=== PATIENT | male | born 2005 | race African-American/Black ===

== ENCOUNTER 2025-10-18 11:18 | Outpatient (AMB) | payer OTHER, MEDICAID, SELFPAY ==
--- NOTE | 2025-10-18 11:18 | A.OFFPC_ITS ---
Vital Signs 10/18/25 11:20 Height 5 ft 10 in Weight 210 lb 4 oz BMI 30.2 BP 120/80 Blood Pressure Location Lt brachial Position Sitting Respiration 16 Pulse 77 Pulse Source Pulse Oximeter Temp 96.8 F Temp Source Temporal Artery Scan Pulse Oximetry (%) 96 Oxygen Delivery Method Room Air Intake Visit Reasons: Re-est care/asthma f/u - see comments Leveler Required: No Accompanied by: Self / Same As Patient Allergies peanut Allergy (Intermediate, Verified 10/18/25 11:22) Facial Swelling Medication List - Last Reconciled 10/18/25 by Rozina Liriano MD albuterol sulfate 90 mcg/actuation (Ventolin HFA) 2 puffs inhalation Q6H PRN Tobacco use date assessed: 10/18/25 Dental Screening Dental Screen Date: 10/18/25 Did you have a dental visit in the last 12 months?: Yes Did you have a dental problem in the last 6 months where you did not have access to dental care?: No Was dental information given to patient?: Patient has dentist HPI HPI Comments History of Present Illness Details The patient is a 20 year old male presenting for physical and to establish care. Last saw watch technician Dr. Chavez many years ago. Asthma: The patient has a history of asthma and reports recent minor wheezing episodes. The patient has a past history of using a Flovent inhaler during sports activities. Pseudofolliculitis Barbae: The patient has had razor bumps for a couple of months, which began after a visit to the [facility]. The patient attempted to treat the condition by scrubbing the area harshly and applying hydrocortisone cream, which was ineffective. Health Maintenance: The patient does not smoke cigarettes but vapes sometimes and drinks alcohol occasionally. The patient recently received a flu shot but was due for a tetanus vaccination. Medical History: - Asthma - Allergies to pollen and dust Surgical History: - Right knee ACL surgery secondary to a football injury. Social History: - Substance Use: The patient denies smok ing cigarettes but reports vaping sometimes. The patient reports occasional alcohol use. - Employment: The patient works at [employer]. - Nutritional Intake: The patient does n ot eat in the morning and reports a poor appetite on some days. - Sleep: The patient reports not sleepin g much. FORMERLY [facility], 1928–1983 Medical History (Updated 10/18/25 @ 11:43 by Rozina Liriano MD) Routine medical exam Unspecified asthma Surgical History (Updated 10/18/25 @ 11:36 by Rozina Liriano MD) H/O right knee surgery Social History Housing: House Patient Tobacco Use Status: Never used Tobacco e-Cigarette/Vaping Use: Currently Using service: No Current occupational status: employed Current occupation: [employer] Questionnaire PHQ-9 Over the last 2 weeks, how often have you been bothered by any of the following problems? 1. Little interest or pleasure in doing things: not at all 2. Feeling down, depressed, or hopeless: not at all 3. Trouble falling or staying asleep, or sleeping too much: several days 4. Feeling tired or having little energy: several days 5. Poor appetite or overeating: several days 6. Feeling bad about yourself - or that you are a failure or have let yourself or your family down: not at all 7. Trouble concentrating on things, such as reading the newspaper or watching television: not at all 8. Moving or speaking so slowly that other people could have noticed. Or the opposite - being so fidgety or restless that you have been moving around a lot more than usual: not at all 9. Thoughts that you would be better off or of hurting yourself in some way: not at all Total score: 3 Depression Screening Interpretation: Negative Depression Screening Done: Yes Source: Developed by Drs. Kris Ruelas, Roxanna Kang, Je Brower and colleagues, with an educational guillermina from [employer]. AUDIT C Alcohol Use Questionnaire (AUDIT-C) 1. How often do you have a drink containing alcohol?: 2-4 times a month 2. How many drinks containing alcohol do you have on a typical day when you are drinking?: 1 or 2 3. How often do you have six or more drinks on one occasion?: Never Total Score: 2 Review of Systems Narrative Review of Systems - CONSTITUTIONAL: Reports feeling a little tired some days and having a poor appetite at times. Denies feeling down or depressed. - RESPIRATORY: Reports a little bit of wheezing recently. - EYES: Denies blurry vision. - SKIN: Reports razor bumps on the face/neck area for a couple of months. - PSYCHIATRIC: Denies feeling depressed, having a poor self-image, trouble concentrating, restlessness, or thoughts of self-harm. - ALLERGIC/IMMUNOLOGIC: per hpi Physical exam (Primary Care) Vital Signs: Last Vital Signs Temp 96.8 F 10/18/25 11:20 Pulse 77 10/18/25 11:20 Resp 16 10/18/25 11:20 BP 120/80 10/18/25 11:20 Pulse Ox 96 10/18/25 11:20 Oxygen Delivery Method Room Air 10/18/25 11:20 BMI result Body Mass Index 30.2 Tobacco/Smoking Status: Tobacco use Status Tobacco use date assessed 10/18/25 10/18/25 11:26 Patient Tobacco Use Status Never used Tobacco 10/18/25 11:26 e-Cigarette/Vaping Use Currently Using 10/18/25 11:26 PHQ-9: PHQ-9 Score PHQ-9: Total score 3 10/19/25 11:29 Depression Screening Interpretation: Negative Narrative Physical Exam -Gen: NAD - HEENT: Left ear contains a small amount of non-obstructing cerumen. Right ear is clear. Oropharynx is clear. - Neck: Supple, with no evidence of lymphadenopathy upon palpation. - Lungs: Auscultation reveals coarse breath sounds without wheezing. - Cardiovascular: Normal heart sounds on auscultation. - Abdomen: Normal bowel sounds present. Soft, non-tender, and non-distended. - Extremities: no edema bilaterally - Derm: small raised papules under chin Immunizations Boostrix Tdap 2.5 Lf unit-8 mcg-5 Lf/0.5 mL intramuscular syringe Performing Provider: Rozina Liriano MD [place] [facility] [place] [facility] [place] Administered by: Sabi Woodall CMA on 10/18/25 11:40 Dose Route Admin Location Dispensed Lot Number Expiration Date [facility] Electric Mule Driver 0.5 mL IM Left Deltoid 0.5 mL [id number] 12/18/26 [id number] [employer] Total Dispensed Waste 0.5 mL 0 % VIS Given Date VIS Provided VIS Publication Date 10/18/25 Single Vaccine 21 Eligibility Eligibility Date Funding Source Not [facility] Eligible 10/18/25 Private Coding Level of Care Code New Pt Prev Care 18-39yr([id number] Complex visit Add On G2211 Diagnoses Routine medical exam Z00.00 Assessment & Plan Assessment & Plan (1) Routine medical exam: Code(s): Z00.00 - Encounter for general adult medical examination without abnormal findings Category: Medical Plan Assessment and Plan 1. Asthma - The patient reports some recent wheezing. - The physical exam was notable for coarse lung sounds without wheezing. - An albuterol inhaler will be prescribed for use as needed, two puffs every 4-6 hours. - The patient was advised to follow up if inhaler use increases, as a stronger inhaler may be necessary. 2. Pseudofolliculitis barbae - The patient has had persistent razor bumps for several months, likely from a contaminated razor, with failed self-treatment using hydrocortisone. - The plan includes a 7-day course of oral doxycycline taken twice daily with food, and a topical antibiotic ointment applied three times daily. - The patient was instructed to stop using hydrocortisone and to wash the area gently. 3. Health Maintenance - Baseline blood work, including liver, kidney, and cholesterol panels, is ordered. - The patient received a Tdap vaccine in the office. - The patient was counseled on the importance of annual exams and avoiding vaping, especially with asthma history. - A recommendation was made to reduce screen time and consider a baseline eye exam. - The patient will follow-up in one year. Plan - Prescribed albuterol HFA inhaler, 2 puffs every 4-6 hours as needed for wheezing. - Prescribed oral doxycycline for 7 days, to be taken twice daily with food for pseudofolliculitis barbae. - Prescribed a topical antibiotic ointment to be applied to the affected skin three times per day. - Administered Tdap vaccine in office. - Ordered baseline laboratory studies including liver function tests, kidney function tests, and a cholesterol panel. - Counseled patient to discontinue use of hydrocortisone cream on the face. - Advised patient to avoid vaping due to asthma. - Recommended a baseline examination with an eye doctor and to minimize screen time. Discussion Notes I discussed the patient's asthma symptoms and prescribed an albuterol inhaler for as-needed use, advising the patient to contact me if symptoms worsen or use increases. Patient Instructions - Use your new albuterol inhaler as needed for wheezing or shortness of breath. The dose is two puffs every 4 to 6 hours. - For the bumps on your skin, take one doxycycline pill in the morning and one in the evening with food for 7 days. - Apply the antibiotic cream I prescribed to the bumps three times a day. - Gently wash the affected skin with soap and water daily. Do not scrub it harshly, as this can cause more irritation. - You received a Tdap (tetanus) shot today. Your arm might feel sore for a day or two. You can take Tylenol or use an ice pack for relief. - You will have blood drawn today to check on your overall health, including your liver, kidneys, and cholesterol. - Avoid vaping, as it can harm your lungs, especially because you have asthma. Orders: Orders Comprehensive Met. Panel 10/18/25 Z00.00 - Encounter for general adult medical examination without abnormal findings TDaP Immunization 10/18/25 Z23 - Encounter for immunization Complete Blood Count Auto Diff 10/18/25 Z00.00 - Encounter for general adult medical examination without abnormal findings Lipid Panel 10/18/25 Z00.00 - Encounter for general adult medical examination without abnormal findings Medications: New mupirocin 2% (Centany) 1 appl topical TID 22 grams 0RF doxycycline monohydrate 100 mg PO BID 14 caps 0RF 7 days albuterol sulfate 90 mcg/actuation (Ventolin HFA) 2 puffs inhalation Q6H PRN 8.5 grams 11RF shortness of breath or wheezing
[2025-10-18 11:20] VITALS: BP 120/80; PULSE 77; RESP 16; TEMP 36; O2SAT 96; BMI 30.2
--- OUTSIDE RECORDS SUMMARY | 2025-10-18 15:00 | XMS_ITS | Clinical Summary ---
Author Organization [facility] Address [address] [place] [address] Phone Care Team Providers Care Tin Pourer Name Role Phone Unavailable Primary Care Provider Unavailabl e Allergies Active Allergy Reactions Criticality Noted Date Comments Peanuts (Food) 11/26/2021 Medications EPINEPHrine (EpiPen 2-Jan) 0.3 MG/0.3ML injection syringeIndicatio ns:Food allergy Inject into muscle immediately for signs of anaphylaxis AND call 911. Repeat if symptoms worsen/recur or if uncertain medicine was given 4 each 1 2 Active albuterol HFA 108 (90 Base) MCG/ACT inhalerIndicatio ns:Mild intermittent asthma without complication INHALE 2 PUFFS EVERY 4 HOURS NEEDED FOR WHEEZING OR SHORTNESS OF BREATH 6.7 g 3 Active Pseudoephedrine- APAP-DM (DAYQUIL PO) Take by mouth. Activ e budesonide-formo terol 80-4.5 MCG/ACT inhalerIndicatio ns:Mild persistent asthma without complication INHALE 2 PUFFS TWICE A DAY RINSE MOUTH WITH WATER AFTER USE, DO NOT SWALLOW 30.6 Units 2 5 Active Active Problems Problem Noted Date Diagnosed Date Need for SBE (subacute bacterial endocarditis) p rophylaxis 10/20/2023 Overview (10/20/2023): Due to hx of bacterial endocarditis Assessment & Plan (10/27/2023 12:03 PM EST): <Kaylynn Lawson MD 10/27/2023 12:02 PM> Addendum added He does require SBE prophylaxis prior to indicated procedures. 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 Needs SBE prophylaxis prior to indicated procedures (dental/oral and respiratory tract procedures) Assessment & Plan (10/08/2023 9:38 AM EST): He was in PICU in 2018 before he was out patient with sepsis and ?bacterial endocarditis. Will need to obtain Cardiology and ID notes and determine if he needs SBE prophylaxis for wisdom teeth extractions. Influenza vaccine refused 10/08/2023 Assessment & Plan (10/08/2023 9:41 AM EST): He refused flu and COVID vaccines today. Mild persistent asthma without complication 01/2022 Assessment & Plan (09/03/2024 11:40 AM EDT): Discussed that if he is routinely needing albuterol with exercise, likely that his asthma is not well-controlled. He agrees to try a daily maintenance dose, and we discussed that he can use this same inhaler as a rescue if he needs it Assessment & Plan (08/28/2023 4:12 PM EDT): Almost never needs his inhaler Assessment & Plan (07/31/2022 5:50 PM EDT): Using Flovent before football, recommended using albuterol instead. Seasonal allergic rhinitis 11/26/2021 Immunizations Immunization Administration Dates Next Due DTaP 03/22/2008, 5,2004,06/07,2004 HPV Vaccine 9 Valent 07/26/2021,10/01/2019,07/16 Hep A, ped/adol 07/25/2020,07/16/2019 Hep B, ped/adol 12/12/2005,2004,2004 HiB 07/04/2005, 4,2004,05/11 IPV 03/22/2008, 5,2004,04/10 Influenza, injectable, quadr ivalent, preservative free 10/07/2013,11/03/2012,10/10/2010,08/23 Influenza, injectable, triva lent, preservative free 09/03/2024 Influenza, injectable,christiano valent, preservative free, pediatric 09/17/2005,2004 MMR 03/22/2008,07/04/2005 Meningococcal B Bexsero 07/26/2021,07/25/2020 Meningococcal Conj (Menactra) MCV4P 07/25/2020,0 03/31/2015 Pneumococcal Conjugate 13-Valent 005,2004,2004,04/10 Tdap 03/31/2015 Varicella 03/22/2008,03/04/2005 Family History Medical History Relation Name Comments Diabetes Maternal Grandfather Asthma Sister 1 Shanika king Relation Name Status Comments Brother David Ceja Alive Father Alive Maternal Grandfather Alive Maternal Grandmother Alive Mother Alive Paternal Grandfather Paternal Grandmother Sister 1 Shanika king Alive Sister 2 Cardion Alive Sister 3 Rafael Savage Alive Social History Tobacco Use Types Packs/Day Years Used Date Smoking Tobacco: Never Tobacco Cessation:Counseling Given: Not Answered Alcohol Use Standard Drinks/Week Comments Never 0 (1 standard drink = 0.6 oz pur e alcohol) Hunger/Food Answer Date Recorded In the last 12 months, did y ou or your family ever eat less than you felt you should because there wasn't enough money for food? No 09/03/2024 Stable Housing Answer Date Recorded Are you worried that in the next 2 months you may not have stable housing? No 09/03/2024 Transportation Concerns Answer Date Rec orded In the last 12 months, have you or your family ever had to go without healthcare because you didn't have a way to get there? No 09/03/2024 Hazards in Home Answer Date Recorded Think about the place you li ve. Do you have problems with any of the following? Pests (mice or roaches), mold, no/not working smoke detectors, water leaks, no window guards. No 2023 Financing Utilities Answer Date Recorde d In the last 12 months, has t he electric, gas, oil, or water company threatened to shut off your services in your home? No 09/03/2024 Safety at Home Answer Date Recorded Are you or your family worried about feeling saf e in your home? No 09/03/2024 Outside Support Answer Date Recorded Do you feel that you need mo re support from other people or programs to help you care for yourself or your family? No 09/03/2024 Understanding Health Concerns Answer Da te Recorded Do you need help understandi ng your or your child's healthcare needs (diagnosis, medications, plan, etc.)? No 09/03/2024 Financing Health Concerns Answer Date R ecorded In the last 12 months, was t here a time when your child needed to see a doctor or get medications or supplies but could not because of cost? No 09/03/2024 Missing School or Work Answer Date Jalil rded Did you or your child miss s chool or work because of a health problem that could have been avoided? No 09/03/2024 Child Education Answer Date Recorded Do you have concerns about y our/your child's learning or behavior in school, preschool, or daycare? No 09/03/2024 Sex and Gender Information Value Date Recorded Sex Assigned at Not on file Legal Sex Male 3:37 PM EST Gender Identity Not on file Sexual Orientation Straight 08/28/2023 4: 18 PM EDT Last Filed Vital Signs Vital Sign Reading Time Taken Comments Blood Pressure 126/80 09/03/2024 9:55 AM EDT Pulse - - Temperature 36.1 C (97 F) 02/19/2024 5:42 PM EDT Respiratory Rate - - Oxygen Saturation - - Inhaled Oxygen Concentration - - Weight 83.2 kg (183 lb 6.4 oz) 09/03/2024 9:55 A M EDT Height 179.1 cm (5' 10.5 ) 09/03/2024 9:55 AM ED T Body Mass Index 25.94 09/03/2024 9:55 AM EDT Plan of Treatment Health Maintenance Due Date Last Done Comments HIV Screening 2004 Syphilis Screening (consider for higher risk patients) 2004 DTaP,Tdap,and Td Vaccines (7 - Td or Tdap) 03/31/2025 03/31/2015, 03/22/2008, 07/26/2005, Additional history exists Influenza Vaccines (#1) 2025 09/03/20 24, 10/07/2013, 11/03/2012, Additional history exists COVID-19 Vaccine (2024-2 6 season) 2025 06/01/2022, 04/18/2021, 03/28/2021 Pneumococcal Vaccine Completed 03/04/2005, 2004, 2004, Additional history exists HIB Vaccines Completed 07/04/2005, 07/2004, 2004, Additional history exists Hepatitis B Vaccines Completed 12/12/2005, 2004, 2004 IPV Vaccines Completed 03/22/2008, 12/2004, 2004, Additional history exists MMR Vaccines Completed 03/22/2008, 07/04/2005 Varicella Vaccines Completed 03/22/2008, 03/04/2005 Hepatitis A Vaccines Completed 07/25/2020, 07/16/20 19 Meningococcal Vaccine Completed 07/25/2020, 015 HPV Vaccines Completed 07/26/2021, 06/2019, 09/29/2019, Additional history exists Men B Vaccine Completed 07/26/2021, 07/25/2020 Procedures * Due to [place] [employer] law, this organization might not be sharing sensitive test results. Procedure Name Priority Date/Time Associated Diagnosis Comments CHLAMYDIA AND GONORRHEA, AMPLIFIED Routine 09/03/2024 11:38 AM EDT Encounter for screening examination for sexually transmitted disease from Last 3 Months or Most Recently Relevant to Health Maintenance Results * Due to [place] [employer] law, this organization might not be sharing sensitive test results. * Chlamydia and Gonorrhoea, Amplified (Urine) (09/03/2024 11:38 AM EDT) C trach OLIMPIA Negative Negative [facility] N gonorrhoeae OLIMPIA Negative Negative [facility] Urine (Urine, Random (not clean void)) 09/03/2024 11:38 AM EDT 09/03/2024 Comment:URINE Narrative [facility] - 09/06/2024 7:06 PM EDT Performed at: - [facility] [address], [address], [place], [place] [id number] Hop Picker: Lyle Betts MD, Phone: [phone] us Fidel Mckeon DO LAB MICROBIOLOGY - GENERAL ORDER SHY Final Result [facility] [address] [place] [address] from Last 3 Months or Most Recently Relevant to Health Maintenance Insurance [employer] EPO OPEN ACCESS [facility] NON PCC [facility] NON PCC [facility] OPEN ACCESS
== END 2025-10-18 12:02 | disposition home or self-care (01) ==
LOC: HO.HMCHD 11:18
PROVIDERS: PCP Internal Medicine; Visit Provider Internal Medicine
DX: Z23 Encounter for immunization (principal)

== ENCOUNTER → 2025-10-18 11:18 | Outpatient (BNVA) | payer OTHER, SELFPAY | PROVIDERS: PCP Internal Medicine; Visit Provider Internal Medicine | DX: Z00.00 Encounter for general adult medical examination without abnormal findings (principal); J45.909 Unspecified asthma, uncomplicated; L73.1 Pseudofolliculitis barbae; Z23 Encounter for immunization; Z13.31 Encounter for screening for depression; Z13.39 Encounter for screening examination for other mental health and behavioral disorders | CPT/HCPCS: 90471; 90715 ==

== ENCOUNTER 2025-10-18 12:04 | Outpatient (REF) | payer OTHER, SELFPAY ==
[2025-10-18 13:13] LABS: MANUAL DIFF FLAG NO
[2025-10-18 13:37] LABS: Hematocrit 46.7 % (42.0-52.0); Hemoglobin 14.8 g/dl (14.0-18.0); Imm Gran Abs Auto 0.02 X10*3/uL (0.00-0.03); Imm Gran Pct Auto 0.4 % (0.0-0.4); Lymphocytes Absolute Auto 1.9 X10*3/uL (1.2-4.9); Mean Corpuscular HGB Conc 31.7 g/dl (31.0-36.0); Mean Corpuscular Hemoglobin 30.9 pg (27.0-33.0); Mean Corpuscular Volume 97.5 fL (80.0-98.0); NRBC Abs Auto 0.000 X10*3/uL (0.0-0.012); NRBC Pct Auto 0.0 /100WBC (0.0-0.2); Platelet Count 272 X10*3/uL (160-400); Red Blood Count 4.79 X10*6/uL (4.60-5.80); White Blood Count 5.3 X10*3/uL (4.8-10.8)
[2025-10-18 16:10] LABS: Alanine Aminotransferase 20 U/L (0-40); Albumin Level 5.0 g/dL (3.5-5.0); Alkaline Phosphatase 62 U/L (39-117); Anion Gap 11 (12-20); Aspartate Amino Transferase 21 U/L (5-37); Blood Urea Nitrogen 14 mg/dL (9-16); Calcium 9.7 mg/dL (8.4-10.2); Carbon Dioxide 27 mmol/L (22-29); Chloride 109 mmol/L (96-108); Cholesterol 227 mg/dL (<200); Estimated Glomerular Filt Rate > 60; HDL Cholesterol 89 mg/dL (>40); Potassium 4.2 mmol/L (3.3-5.1); Sodium 143 mmol/L (135-145); Total Protein 7.1 g/dL (6.5-8.0); Triglycerides 67 mg/dL (<150)
== END 2025-10-18 12:05 | disposition home or self-care (01) ==
LOC: HO.10HDL 12:04
PROVIDERS: Visit Provider Internal Medicine
DX: Z00.00 Encounter for general adult medical examination without abnormal findings (principal)
CPT/HCPCS: 36415; 80053; 80061; 85025